=== PATIENT | male | born 1980 | race Caucasian/White ===

== ENCOUNTER 2019-06-17 11:49 | Emergency (ER) | payer OTHER ==
[2019-06-17 11:56] VITALS: BP 139/75
[2019-06-17] MEDS ORDERED: PROMETH-CODEIN 65 ML PO (12:43)
== END 2019-06-17 12:46 | disposition home or self-care (01) ==
LOC: ER 11:49
DX: J11.1 Influenza due to unidentified influenza virus with other respiratory manifestations (principal)

== ENCOUNTER 2019-07-17 18:12 | Emergency (ER) | payer OTHER ==
[~2019-07-17] VITALS: Ht 193 cm; Wt 108.9 kg
[~2019-07-17 18:12] MED LIST: PROMETH-CODEIN 65 ML PO
[2019-07-17 21:15] VITALS: BP 130/82
== END 2019-07-17 21:19 | disposition home or self-care (01) ==
LOC: ER 18:12
DX: J02.0 Streptococcal pharyngitis (principal)